=== PATIENT | female | born 1990 ===

== ENCOUNTER → 2020-11-13 | Outpatient (CLI) | payer SELFPAY ==
[~2020-11-13] MED LIST: COVID-19 VACCINE (PFIZER)/PF 30 MCG/0.3 ML VIAL IM ONE
== END ==
LOC: EMPHEALTH 07:12
PROVIDERS: ATTEND Internal Medicine
DX: Z23 Encounter for immunization (principal)
CPT/HCPCS: 91300

== ENCOUNTER → 2020-12-04 | Outpatient (CLI) | payer SELFPAY ==
[~2020-12-04] MED LIST changes: +EPINEPHRINE INJ/PF 1 MG/1 ML AMPULE IM PRN
== END ==
LOC: EMPHEALTH 11:35
PROVIDERS: ATTEND Internal Medicine
DX: Z23 Encounter for immunization (principal)
CPT/HCPCS: 91300